=== PATIENT | female | born 1995 | race Caucasian/White ===

== ENCOUNTER 2021-04-10 14:59 | Inpatient (IN) | payer BC ==
[2021-04-10 16:04] VITALS: BMI 16.7
[2021-04-10] MEDS ORDERED: ACETAMINOPHEN 325 MG TABLET (FP) PO PRN (16:32)
[2021-04-10] MEDS ORDERED: MAGNESIUM CITRATE 300 ML BOTTLE PO PRN (16:32)
[2021-04-10] MEDS ORDERED: MAGNESIUM HYDROX 2400MG/30ML ORAL SUSPENSION 30 ML CUP PO PRN (16:32)
[2021-04-10] MEDS ORDERED: BISMUTH SUBSALICYLATE 524 MG/30 ML PO PRN (16:32)
[2021-04-10] MEDS ORDERED: MENTHOL/PHENOL 1 EACH UD MM PRN (16:32)
[2021-04-10] MEDS: LORazepam 2 MG TABLET PO SCH ×2 (16:43→22:40)
[2021-04-10] MEDS: IBUPROFEN 400 MG TABLET (FP) PO PRN (18:02)
[2021-04-10] MEDS: hydrOXYzine PAMOATE 25 MG CAPSULE (FP) PO SCH ×2 (18:02→22:39)
[2021-04-10] MEDS: LORazepam 1 MG TABLET PO PRN (19:01)
[2021-04-10] MEDS: ONDANSETRON *ODT* 4 MG TABLET SL PRN (19:01)
[2021-04-10] MEDS: NICOTINE POLACRILEX 2 MG GUM BUC PRN (19:02)
[2021-04-10] MEDS: MELATONIN 5 MG TABLETS PO SCH (22:39)
[2021-04-10] MEDS: THIAMINE HCL 100 MG TABLET (FP) PO SCH (22:39)
[2021-04-10] MEDS: METHOCARBAMOL 500 MG TABLET PO PRN (22:41)
[2021-04-10] MEDS: ACETAMINOPHEN 325 MG TABLET (FP) PO PRN (22:42)
[2021-04-11] MEDS: LORazepam 2 MG TABLET PO SCH ×4 (05:36→23:06)
[2021-04-11] MEDS: hydrOXYzine PAMOATE 25 MG CAPSULE (FP) PO SCH ×2 (05:37→10:49)
[2021-04-11] MEDS: ACETAMINOPHEN 325 MG TABLET (FP) PO PRN ×3 (05:38→17:57)
[2021-04-11 10:09] LABS: HEMATOCRIT 38.4 % (32.4-45.2); HEMOGLOBIN 12.6 GM/dL (10.7-15.3); MCH 32.5 pg (25.7-33.7); MCHC 32.7 g/dl (32.0-36.0); MEAN CELL VOLUME 99.3 fl (80-96); MEAN PLT VOLUME 7.9 fl (7.5-11.1); PLATELET COUNT 150 10^3/uL (134-434); RBC 3.87 M/mm3 (3.60-5.2); RDW 13.8 % (11.6-15.6); WHITE BLOOD COUNT 3.9 K/mm3 (4.0-10.0)
[2021-04-11 10:21] LABS: ALBUMIN 3.5 g/dl (3.4-5.0); BLOOD UREA NITROGEN 7.8 mg/dL (7-18)
[2021-04-11 10:22] LABS: CALCIUM 9.2 mg/dL (8.5-10.1)
[2021-04-11 10:25] LABS: BILIRUBIN,TOTAL 1.2 mg/dL (0.2-1)
[2021-04-11 10:26] LABS: CREATININE 0.7 mg/dL (0.55-1.3)
[2021-04-11 10:28] LABS: TOT PROT 6.7 g/dl (6.4-8.2)
[2021-04-11] MEDS: NICOTINE 14 MG/24 HOURS TOPICAL PATCH TD SCH (10:49)
[2021-04-11] MEDS: FOLIC ACID 1 MG TABLET (FP) PO SCH (10:49)
[2021-04-11] MEDS: PRENATAL VITAMINS W/ FOLIC ACID TABLET (FP) PO SCH (10:49)
[2021-04-11] MEDS: PANTOPRAZOLE 40 MG TABLET PO SCH (10:49)
[2021-04-11] MEDS: ONDANSETRON *ODT* 4 MG TABLET SL PRN ×2 (12:56→17:58)
[2021-04-11] MEDS: METHOCARBAMOL 500 MG TABLET PO PRN (14:53)
[2021-04-11] MEDS: hydrOXYzine PAMOATE 25 MG CAPSULE (FP) PO PRN (14:53)
[2021-04-11] MEDS: LORazepam 1 MG TABLET PO PRN (14:54)
[2021-04-11] MEDS: MELATONIN 5 MG TABLETS PO SCH (23:06)
[2021-04-11] MEDS: THIAMINE HCL 100 MG TABLET (FP) PO SCH (23:06)
[2021-04-11] MEDS: MIRTAZAPINE 15 MG TABLET (FP) PO SCH (23:06)
[2021-04-12] MEDS: LORazepam 1 MG TABLET PO SCH ×4 (07:31→22:05)
[2021-04-12] MEDS: ONDANSETRON *ODT* 4 MG TABLET SL PRN ×2 (07:35→17:34)
[2021-04-12] MEDS: IBUPROFEN 400 MG TABLET (FP) PO PRN ×2 (07:36→17:34)
[2021-04-12] MEDS: NICOTINE POLACRILEX 2 MG GUM BUC PRN ×3 (07:37→22:06)
[2021-04-12] MEDS: FOLIC ACID 1 MG TABLET (FP) PO SCH (11:06)
[2021-04-12] MEDS: PANTOPRAZOLE 40 MG TABLET PO SCH (11:06)
[2021-04-12] MEDS: PRENATAL VITAMINS W/ FOLIC ACID TABLET (FP) PO SCH (11:06)
[2021-04-12] MEDS: NICOTINE 14 MG/24 HOURS TOPICAL PATCH TD SCH (11:07)
[2021-04-12] MEDS: MAG HYDROX/AL HYDROX/SIMETH 30 ML UNIT-DOSE CUP PO PRN ×2 (11:11→17:34)
[2021-04-12] MEDS: ACETAMINOPHEN 325 MG TABLET (FP) PO PRN ×2 (11:12→20:14)
[2021-04-12] MEDS: METHOCARBAMOL 500 MG TABLET PO PRN (17:34)
[2021-04-12] MEDS: hydrOXYzine PAMOATE 25 MG CAPSULE (FP) PO PRN (20:15)
[2021-04-12] MEDS: LORazepam 1 MG TABLET PO PRN (20:22)
[2021-04-12] MEDS: MELATONIN 5 MG TABLETS PO SCH (22:05)
[2021-04-12] MEDS: THIAMINE HCL 100 MG TABLET (FP) PO SCH (22:05)
[2021-04-12] MEDS: MIRTAZAPINE 15 MG TABLET (FP) PO SCH (22:05)
[2021-04-13] MEDS ORDERED: LORazepam 0.5 MG TABLET PO PRN
[2021-04-13] MEDS: ACETAMINOPHEN 325 MG TABLET (FP) PO PRN (06:27)
[2021-04-13] MEDS: METHOCARBAMOL 500 MG TABLET PO PRN (06:28)
[2021-04-13] MEDS: LORazepam 0.5 MG TABLET PO SCH ×2 (06:28→10:00)
[2021-04-13 09:39] VITALS: BP 103/74; PULSE 108; TEMP 96.8
[2021-04-13] MEDS: FOLIC ACID 1 MG TABLET (FP) PO SCH (10:00)
[2021-04-13] MEDS: PANTOPRAZOLE 40 MG TABLET PO SCH (10:00)
[2021-04-13] MEDS: PRENATAL VITAMINS W/ FOLIC ACID TABLET (FP) PO SCH (10:01)
[2021-04-13] MEDS: NICOTINE 14 MG/24 HOURS TOPICAL PATCH TD SCH (10:01)
[2021-04-14] MEDS ORDERED: LORazepam 0.5 MG TABLET PO ONE (05:00)
== END 2021-04-13 10:47 | disposition home or self-care (01) | DRG 775 ==
LOC: YASAS 14:59 → Y3N 17:08
PROVIDERS: ADMIT Allergy & Immunology; ATTEND Allergy & Immunology
PROC: HZ2ZZZZ Detoxification Services for Substance Abuse Treatment (ICD-10-PCS; principal; 2021-04-10)
DX: F10.230 Alcohol dependence with withdrawal, uncomplicated (principal); F13.20 Sedative, hypnotic or anxiolytic dependence, uncomplicated; F17.210 Nicotine dependence, cigarettes, uncomplicated; F19.282 Other psychoactive substance dependence with psychoactive substance-induced sleep disorder; F19.24 Other psychoactive substance dependence with psychoactive substance-induced mood disorder; Z86.69 Personal history of other diseases of the nervous system and sense organs; Z56.0 Unemployment, unspecified; Z59.0 Homelessness
CPT/HCPCS: 36415; 80053; 85027; 86780; C9803; Q0162; U0003; U0005

== ENCOUNTER 2024-10-31 16:13 | Inpatient (IN) | payer BC ==
[2024-10-31 16:23] VITALS: BMI 18.1
[2024-10-31] MEDS ORDERED: NALOXONE (NARCAN) HCL 4 MG/0.1 ML SPRAY NS PRN (16:27)
[2024-10-31] MEDS ORDERED: POLYETHYLENE GLYCOL (HEALTHYLAX) 3350 17 GM PACKET PO PRN (16:27)
[2024-10-31] MEDS ORDERED: BENZOCAINE/MENTHOL (CHLORASEPTIC ) LOZENGE MM PRN (16:27)
[2024-10-31] MEDS ORDERED: traZODone HCL 100 MG TABLET (FP) PO PRN (16:27)
[2024-10-31] MEDS ORDERED: MAGNESIUM HYDROX 2400MG/30ML ORAL SUSPENSION 30 ML CUP PO PRN (16:27)
[2024-10-31] MEDS ORDERED: guaiFENesin 600 MG TABLET.ER (FP) PO PRN (16:27)
[2024-10-31] MEDS ORDERED: DICYCLOMINE HCL 10 MG CAPSULE PO PRN (16:27)
[2024-10-31] MEDS ORDERED: BENZONATATE 200 MG CAPSULE PO PRN (16:27)
[2024-10-31] MEDS: diazePAM 5 MG TABLET PO ONE (16:50)
[2024-10-31] MEDS ORDERED: diazePAM 5 MG TABLET ONE (17:35)
[2024-10-31] MEDS: diazePAM 5 MG TABLET PO SCH (17:46)
[2024-10-31] MEDS: MIRTAZAPINE 15 MG TABLET (FP) PO SCH ×2 (18:01→18:15)
[2024-10-31] MEDS: cloNIDine HCL 0.1 MG TABLET PO PRN (18:01)
[2024-10-31] MEDS: hydrOXYzine PAMOATE 25 MG CAPSULE (FP) PO PRN (19:44)
[2024-10-31] MEDS: ARIPiprazole 2 MG TABLET PO SCH (19:44)
[2024-10-31] MEDS: METHOCARBAMOL 500 MG TABLET PO PRN (19:44)
[2024-10-31] MEDS: diazePAM 5 MG TABLET PO PRN (20:32)
[2024-10-31] MEDS: TOPIRAMATE 25 MG TABLET PO SCH (22:55)
[2024-10-31] MEDS: THIAMINE 100 MG TABLET PO SCH (22:55)
[2024-10-31] MEDS: traZODone HCL 50 MG TABLET (FP) PO PRN (22:55)
[2024-10-31] MEDS: MELATONIN 5 MG TABLETS PO SCH (22:55)
[2024-11-01] MEDS: IBUPROFEN 600 MG TABLET (FP) PO PRN (04:25)
[2024-11-01] MEDS: ONDANSETRON *ODT* 4 MG TABLET SL PRN (08:38)
[2024-11-01] MEDS: PRENATAL VITAMINS W/ FOLIC ACID TABLET (FP) PO SCH (09:09)
[2024-11-01] MEDS: NICOTINE 21 MG/24 HOURS TOPICAL PATCH TD SCH (10:25)
[2024-11-01] MEDS: NICOTINE POLACRILEX 4 MG GUM BUC PRN (10:29)
[2024-11-01] MEDS: TRIMETHOBENZAMIDE HCL 200MG/2ML INJ IM PRN (10:55)
[2024-11-01] MEDS: ACETAMINOPHEN 325 MG TABLET (FP) PO PRN (11:38)
[2024-11-01] MEDS: MAG HYDROX/AL HYDROX/SIMETH 30 ML UNIT-DOSE CUP PO PRN (11:53)
[2024-11-01] MEDS: levETIRAcetam 500 MG TABLET (FP) PO ONE (12:01)
[2024-11-01] MEDS: GABAPENTIN 100 MG CAPSULE PO SCH (14:21)
[2024-11-01] MEDS: DIPHENOXYLATE 2.5/ATROPINE.025 1 COMBO TABLET PO ONE (16:00)
[2024-11-01] MEDS: LOPERAMIDE HCL 2 MG CAPSULE PO PRN (18:11)
[2024-11-01] MEDS: traZODone HCL 50 MG TABLET (FP) PO SCH (22:08)
[2024-11-01] MEDS: levETIRAcetam 500 MG TABLET (FP) PO SCH (22:09)
[2024-11-02] MEDS: BISMUTH SUBSALICYLATE 524 MG/30 ML PO PRN (04:45)
[2024-11-02] MEDS: diazePAM 5 MG TABLET PO SCH (05:49)
[2024-11-03] MEDS: diazePAM 5 MG TABLET PO SCH (06:05)
[2024-11-03] MEDS: NICOTINE POLACRILEX 4 MG LOZENGE BC PRN (14:07)
[2024-11-04] MEDS: IBUPROFEN 400 MG TABLET (FP) PO PRN (06:12)
[2024-11-04] MEDS: diazePAM 5 MG TABLET PO ONE (06:13)
[2024-11-04 10:00] VITALS: BP 102/62; PULSE 89; RESP 18; TEMP 98.6
[2024-11-04] MEDS: NALOXONE (NYS OPIOID OVERDOSE PROGRAM) 4 MG/0.1 ML SPRAY NS SCH (10:28)
== END 2024-11-04 12:22 | disposition home or self-care (01) | DRG 775 ==
LOC: YASAS 16:13 → Y6N 16:49
PROVIDERS: ADMIT Allergy & Immunology; ATTEND Allergy & Immunology
PROC: HZ2ZZZZ Detoxification Services for Substance Abuse Treatment (ICD-10-PCS; principal; 2024-10-31)
DX: F10.230 Alcohol dependence with withdrawal, uncomplicated (principal); F13.20 Sedative, hypnotic or anxiolytic dependence, uncomplicated; F17.210 Nicotine dependence, cigarettes, uncomplicated; F19.282 Other psychoactive substance dependence with psychoactive substance-induced sleep disorder; F19.24 Other psychoactive substance dependence with psychoactive substance-induced mood disorder; K29.70 Gastritis, unspecified, without bleeding; R63.6 Underweight; Z68.1 Body mass index [BMI] 19.9 or less, adult; Z91.410 Personal history of adult physical and sexual abuse; Z63.0 Problems in relationship with spouse or partner; Z87.19 Personal history of other diseases of the digestive system
CPT/HCPCS: 80305; 80307; 81025; 93005; 93010; Q0162

== ENCOUNTER 2025-04-19 10:03 | Inpatient (IN) | payer BC ==
[2025-04-19 10:29] VITALS: BMI 19.7
[2025-04-19] MEDS ORDERED: IBUPROFEN 400 MG TABLET (FP) PO PRN (10:39)
[2025-04-19] MEDS ORDERED: NALOXONE (NARCAN) HCL 4 MG/0.1 ML SPRAY NS PRN (10:39)
[2025-04-19] MEDS ORDERED: LOPERAMIDE HCL 2 MG CAPSULE PO PRN (10:39)
[2025-04-19] MEDS ORDERED: POLYETHYLENE GLYCOL (HEALTHYLAX) 3350 17 GM PACKET PO PRN (10:39)
[2025-04-19] MEDS ORDERED: MAGNESIUM HYDROX 2400MG/30ML ORAL SUSPENSION 30 ML CUP PO PRN (10:39)
[2025-04-19] MEDS ORDERED: DICYCLOMINE HCL 10 MG CAPSULE PO PRN (10:39)
[2025-04-19] MEDS ORDERED: BENZONATATE 200 MG CAPSULE PO PRN (10:39)
[2025-04-19] MEDS ORDERED: TRIMETHOBENZAMIDE HCL 200MG/2ML INJ IM PRN (10:56)
[2025-04-19] MEDS: diazePAM 5 MG TABLET PO ONE (11:05)
[2025-04-19] MEDS ORDERED: LORazepam 2 MG/ML SDV VIAL ONE (11:20)
[2025-04-19] MEDS ORDERED: levETIRAcetam 500 MG TABLET (FP) PO ONE (11:20)
[2025-04-19] MEDS: LORazepam 2 MG/ML SDV VIAL IM ONE (11:22)
[2025-04-19] MEDS: levETIRAcetam 500 MG TABLET (FP) PO SCH (11:28)
[2025-04-19] MEDS: METHOCARBAMOL 500 MG TABLET PO PRN (12:26)
[2025-04-19] MEDS: diazePAM 5 MG TABLET PO PRN (12:26)
[2025-04-19] MEDS: hydrOXYzine PAMOATE 25 MG CAPSULE (FP) PO PRN (12:26)
[2025-04-19] MEDS: NICOTINE 21 MG/24 HOURS TOPICAL PATCH TD SCH (12:28)
[2025-04-19] MEDS: PANTOPRAZOLE 20 MG TABLET PO SCH (12:59)
[2025-04-19] MEDS: diazePAM 5 MG TABLET PO SCH (16:41)
[2025-04-19] MEDS: IBUPROFEN 600 MG TABLET (FP) PO PRN (16:43)
[2025-04-19] MEDS: ONDANSETRON *ODT* 4 MG TABLET SL PRN (16:45)
[2025-04-19] MEDS: cloNIDine HCL 0.1 MG TABLET PO PRN (20:25)
[2025-04-19] MEDS: NICOTINE POLACRILEX 4 MG GUM BUC PRN (22:25)
[2025-04-19] MEDS: MELATONIN 5 MG TABLETS PO SCH (22:25)
[2025-04-19] MEDS: THIAMINE 100 MG TABLET PO SCH (22:25)
[2025-04-19] MEDS: MIRTAZAPINE 15 MG TABLET (FP) PO SCH (22:26)
[2025-04-20] MEDS: ACETAMINOPHEN 325 MG TABLET (FP) PO PRN (06:10)
[2025-04-20] MEDS: guaiFENesin 600 MG TABLET.ER (FP) PO PRN (06:14)
[2025-04-20] MEDS: SERTRALINE HCL 50 MG TABLET (FP) PO SCH (10:31)
[2025-04-20] MEDS: PRENATAL VITAMINS W/ FOLIC ACID TABLET (FP) PO SCH (10:31)
[2025-04-20] MEDS: cloNIDine HCL 0.1 MG TABLET PO PRN (14:42)
[2025-04-20] MEDS: BISMUTH SUBSALICYLATE 524 MG/30 ML PO PRN (17:33)
[2025-04-20] MEDS: traZODone HCL 50 MG TABLET (FP) PO SCH (22:21)
[2025-04-21] MEDS: diazePAM 5 MG TABLET PO SCH (06:59)
[2025-04-21] MEDS: diphenhydrAMINE HCL 25 MG CAPSULE (FP) PO ONE (09:16)
[2025-04-21] MEDS: hydrOXYzine PAMOATE 25 MG CAPSULE (FP) PO ONE (09:28)
[2025-04-21] MEDS: cloNIDine HCL 0.1 MG TABLET PO PRN (12:05)
[2025-04-21] MEDS: MAG HYDROX/AL HYDROX/SIMETH 30 ML UNIT-DOSE CUP PO PRN (13:51)
[2025-04-21 15:18] LABS: HEMATOCRIT 34.3 % (34.1-44.9); HEMOGLOBIN 9.9 g/dL (11.2-15.7); MCHC 28.9 g/dl (32.2-35.5); MEAN PLT VOLUME 11.4 fl (9.4-12.3); PLATELET COUNT 160 x10^3/uL (182-369); RDW 17.9 % (12.1-16.5)
[2025-04-21 15:23] LABS: CHLORIDE 104 mmol/L (98-107); POTASSIUM 4.2 mmol/L (3.5-5.1); SODIUM 139 mmol/L (136-145)
[2025-04-21 15:34] LABS: CALCIUM 9.6 mg/dL (8.5-10.1)
[2025-04-21 15:35] LABS: ALBUMIN 3.3 g/dl (3.4-5.0); ANION GAP 9 mmol/L (4-13); CO2 25 mmol/L (21-32); GLUCOSE,RANDOM 66 mg/dL (74-106)
[2025-04-21 15:38] LABS: CREATININE 0.7 mg/dL (0.55-1.3); SGOT/AST 20 U/L (15-37); SGPT/ALT 25 U/L (13-61)
[2025-04-21 15:39] LABS: BILIRUBIN,TOTAL 0.3 mg/dL (0.2-1); TOT PROT 6.7 g/dl (6.4-8.2)
[2025-04-21 15:41] LABS: ALK PHOS 71 U/L (45-117)
[2025-04-22] MEDS: diazePAM 5 MG TABLET PO SCH (06:45)
[2025-04-22] MEDS: BENZOCAINE/MENTHOL (CHLORASEPTIC ) LOZENGE MM PRN (09:56)
[2025-04-23] MEDS: diazePAM 5 MG TABLET PO ONE (06:03)
[2025-04-23 11:55] VITALS: BP 103/73; PULSE 112; RESP 18; TEMP 97.7
== END 2025-04-23 09:47 | disposition home or self-care (01) | DRG 775 ==
LOC: YASAS 10:03 → Y3N 11:53
PROVIDERS: ADMIT Allergy & Immunology; ATTEND Allergy & Immunology
PROC: HZ2ZZZZ Detoxification Services for Substance Abuse Treatment (ICD-10-PCS; principal; 2025-04-19)
DX: F10.230 Alcohol dependence with withdrawal, uncomplicated (principal); F17.210 Nicotine dependence, cigarettes, uncomplicated; F19.24 Other psychoactive substance dependence with psychoactive substance-induced mood disorder; F41.9 Anxiety disorder, unspecified; F32.9 Major depressive disorder, single episode, unspecified; K29.20 Alcoholic gastritis without bleeding; K21.9 Gastro-esophageal reflux disease without esophagitis; G47.00 Insomnia, unspecified; Z87.19 Personal history of other diseases of the digestive system; Z86.69 Personal history of other diseases of the nervous system and sense organs; Z88.8 Allergy status to other drugs, medicaments and biological substances; Z88.0 Allergy status to penicillin
CPT/HCPCS: 36415; 80053; 80307; 85027; 86780; 93005; 93010; Q0162